=== PATIENT | male | born 1975 | race Caucasian/White ===

== ENCOUNTER 2020-03-14 16:18 | Emergency (ER) | payer OTHER, SELFPAY ==
--- NOTE | 2020-03-14 16:22 | ED.GENADULT ---
HPI - General Adult General Chief complaint: Dental/Oral Stated complaint: tooth pain Time Seen by Provider: 03/14/20 16:34 Source: patient Mode of arrival: ambulatory Limitations: no limitations History of Present Illness HPI narrative: 44-year-old male patient presents to the [facility] with complaints of lower dental pain that started yesterday. Patient states that he had his top teeth replaced and he was supposed to be getting his bottom teeth pulled and replaced however he is having a difficult time to get into his dentist due to the pandemic. Patient states he started having pain to the lower lateral incisor on the right side. Patient denies any fevers, body aches or chills. Patient states he has been taking Advil for his symptoms. Related Data Allergies Allergy/AdvReac Type Severity Reaction Status Date / Time No Known Allergies Allergy Verified 03/14/20 16:42 Review of Systems Review of Systems: Narrative: CONSTITUTIONAL: Denies fever, chills, or sweats. EYES: Denies visual changes, redness, or discharge. ENT: Denies rhinorrhea, congestion, sore throat, or otalgia. Positive lower front dental pain that started yesterday CARDIOVASCULAR: Denies chest pain, palpitations, or edema. RESPIRATORY: Denies cough or dyspnea. GASTROINTESTINAL: Denies abdominal pain, nausea, vomiting, or diarrhea. GENITOURINARY: Denies dysuria or hematuria. SKIN: Denies rash or itching. MUSCULOSKELETAL: Denies back pain, joint pain, or myalgia. NEUROLOGIC: Denies headache, numbness, or weakness. PSYCHIATRIC: Denies anxiety or depression. PMFSH Comments At the time of my signature I agree with nursing past medical history, surgical, social, and family history. There is no relevant family history pertinent to the presenting complaint. Exam Narrative: Exam Narrative: GENERAL: Well-appearing, well-nourished, and in no acute distress. HEAD: Normocephalic, atraumatic. EYES: PERRLA and EOMI. ENT: Nares clear, no rhinorrhea or epistaxis. Mucous membranes moist. Patient has lower lateral incisor that appears to be decayed with surrounding erythema and swelling to the gum. No obvious abscess noted. NECK: Supple. No lymphadenopathy CHEST: Clear to auscultation. No respiratory distress. HEART: Regular rate and rhythm. No murmur heard. Normal peripheral pulses. ABDOMEN: Soft, nontender, nondistended, normal active bowel sounds. EXTREMITIES: Normal range of motion. No edema. SKIN: Warm, dry, no rash. NEURO: No focal deficits. Alert and oriented x3. Course Vital Signs Vital signs: Vital Signs Temperature 36.9 C 03/14/20 16:31 Pulse Rate 108 H 03/14/20 16:31 Respiratory Rate 03/14/20 16:31 Blood Pressure 160/86 H 03/14/20 16:31 Temperature 36.9 C 03/14/20 16:31 Pulse Rate 108 H 03/14/20 16:31 Respiratory Rate 03/14/20 16:31 Blood Pressure 160/86 H 03/14/20 16:31 Vital signs reviewed. The patient has been informed that they may have pre-hypertension or Hypertension based on a BP reading in the department. I recommend that the patient call the primary care provider listed on their discharge instructions or a physician of their choice this week to arrange follow up for further evaluation of possible pre-hypertension or Hypertension Medical Decision Making Differential Diagnosis Differential Diagnosis: Differential diagnosis: Dental caries, periodontal disease, avulsed tooth, tooth infections, mandibular infection, Jake's angiana, upper tooth infection, dry socket, gingivitis, acute necrotizing ulcerative gingivitis, sialolithiasis. Discussed with patient we will go ahead and discharge him home with some antibiotics along with some pain medicine until he can get into his dentist this week. Discussed with patient if he has worsening symptoms such as swelling to the outside of the mouth, trouble breathing or any other concerning symptoms he would need to go to the ER for further evaluation and treatment. Patient verbal
[2020-03-14 16:31] VITALS: BP 160/86; PULSE 108; RESP 20; TEMP 36.9
== END 2020-03-14 16:55 | disposition home or self-care (01) ==
PROVIDERS: Emergency Provider Nurse Practitioner Family
DX: K02.9 Dental caries, unspecified (principal)
CPT/HCPCS: 99203; G0463